=== PATIENT | male | born 1955 | race Caucasian/White ===

== ENCOUNTER → 2016-06-12 | Outpatient (CLI) | payer OTHER ==
--- NOTE | 2016-06-12 10:09 | DX ---
Left Foot, Three Views, at 8:29 a.m. Clinical History: 60-year-old male with left foot pain for one month, and no known injury. ICD-10 Diagnostic Code: M79.672. Comparison Study: None. Findings: The bones appear demineralized; however, there is no fracture, dislocation, or marginal ero fredy. 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 There are posterior calcaneal enthesophytes, more prominent at the plantar ap oneurosis insertion point. There is a well-corticated ossific density over the dorsal midfoot seen on the lateral view. The tarsometatarsal alignments are anatomic. Mild degenerative change at the great toe MTP joint is seen. There is no periostitis to suggest a stress fracture. Nonetheless, if there i s continuing clinical concern regarding an occult fracture and persistent foot pain, a bone scan or M R imaging could be considered. Impression: There is no acute or subacute osseous abnormality identified.
== END ==
LOC: FIMAGING 08:27
PROVIDERS: ATTEND Family Medicine
DX: M77.32 Calcaneal spur, left foot (principal)

== ENCOUNTER → 2018-10-03 | Outpatient (CLI) | payer OTHER | LOC: FIMAGING 08:57 ==